=== PATIENT | male | born 1990 | race Caucasian/White ===

== ENCOUNTER 2022-07-07 13:55 | Emergency (ER) | payer SELFPAY ==
[2022-07-07] MEDS ORDERED: Acetaminophen/HYDROcodone 325-5 MG Tab PO ONE (15:59)
== END 2022-07-07 16:54 | disposition home or self-care (01) ==
LOC: MW.ED 13:55
DX: S39.92XA Unspecified injury of lower back, initial encounter (principal); W18.30XA Fall on same level, unspecified, initial encounter
CPT/HCPCS: 72131; 99283; A9270

== ENCOUNTER 2024-09-15 02:52 | Emergency (ER) | payer SELFPAY | END 2024-09-15 04:05 | disposition home or self-care (01) | LOC: MW.ED 02:52 | DX: R04.0 Epistaxis (principal) | CPT/HCPCS: 30901; 99283-25 ==